=== PATIENT | female | born 1950 | race Caucasian/White ===

== ENCOUNTER 2018-03-29 12:45 | Inpatient (IN) ==
--- NOTE | 2018-03-29 12:49 | PDOC ---
Dyspnea HPI - General Chief Complaint: Respiratory Complaint Stated Complaint: Short of Breath Date Seen by Provider: 03/29/18 Time Seen by Provider: 12:49 Source: POSITIVE: Patient, Other (Daughter) Exam Limitations: POSITIVE: No limitations Treatment Prior to Arrival: REPORTS: None Nurse's Notes Reviewed & Considered: Yes - History of Present Illness Initial Comments: This is a well-developed, well-nourished, 67-year-old female, complaining of shortness of breath. Patient with several months of increasing shortness of breath has gotten acutely worse over the last week. Her daughters have convinced her to come in to be evaluated. She is now complaining of nausea, vomiting, dry heaves, shortness of breath, lower extremity swelling. Patient denies any headache, no sore throat, no chest pain, no cough, no constipation, she has had some episodes of diarrhea over the last couple of days. She denies any hematuria or dysuria, no rashes, she denies fever chills or sweats. Body Location Affected: REPORTS: Lower Extremity (L), Lower Extremity (R), Chest , Abdomen Timing: REPORTS: Gradual, Getting Worse Duration: Other (Approximately 3 months but acutely worse in the last 7 days.) Severity: Severe Initiating Event: DENIES: Upper Respiratory Illness, Out of Medications, Sports , Exercise, Aspiration, Choking, Allergy, Exposure - Smoke, Exposure - Mold, Exposure - Other Allergen Context: DENIES: Sleep, Rest, Emotional Upset, Activity, Exertion, Other Exacerbated By: REPORTS: Exertion Associated Symptoms: REPORTS: Ankle Swelling, Leg Swelling Similar Symptoms Previously: No Recently seen/treated/hospitalized: No Any Prior Injuries Related to Current Complaint?: No - Patient Home Medications Home Medications: Home Medications Albuterol Sulfate [Ventolin Hfa] 1 - 2 puff INH PRN PRN 03/29/18 Amlodipine Besylate 5 mg PO DAILY 03/29/18 Aspirin 1 mg PO DAILY 03/29/18 Aspirin/Calcium Carbonate/Mag [Aspirin Buffered 325 mg Tab] 650 mg PO BEDTIME Benazepril HCl 10 mg PO DAILY 03/29/18 Hydrochlorothiazide 25 mg PO DAILY 03/29/18 Multivit-Min/Iron/Folic/Lutein [Centrum Silver Women Tablet] 1 tab PO DAILY [place]-3 Fatty Acids/Fish Oil [[place] 3 1,000 mg Softgel] 1 cap PO DAILY 03/29/18 Sitagliptin Phos/Metformin HCl [Janumet 50-500 mg Tablet] 1 tab PO BID 03/29/18 traMADol HCl [Ultram] 50 mg PO TID 03/29/18 - Patient Allergies Allergies/Adverse Reactions: Allergies 3 Allergy/AdvReac Type Severity Reaction Status Date / Time acetaminophen [From Vicodin] Allergy HIVES Verified 03/29/18 12:55 codeine Allergy HIVES Verified 03/29/18 12:55 hydrocodone [From Vicodin] Allergy HIVES Verified 03/29/18 12:55 ROS - Limitations ROS Limitations: No Limitations Constitution: REPORTS: Denies Symptoms Cardiovascular: REPORTS: Denies Cardiac Symptoms Respiratory: REPORTS: Shortness Of Breath Neurological: REPORTS: Denies Neuro Symptoms Gastrointestinal: REPORTS: Nausea, Vomitting, Diarrhea Endocrine: REPORTS: Denies Symptoms Musculoskeletal: REPORTS: Denies MS Symptoms Genitourinary: REPORTS: Denies Symptoms Eyes: REPORTS: Denies Symptoms ENT: REPORTS: Denies Symptoms Skin: REPORTS: Denies Skin Symptoms Lympathic: REPORTS: Denies Lympathic Symptoms Immunologic: POSITIVE: Denies Symptoms Psychiatric: POSITIVE: Denies Psych Symptoms Dyspnea Physical Exam - General Appearance General Appearance: REPORTS: Alert, Cooperative, No Acute Distress, No Evidence of Trauma - HEENT HEENT: POSITIVE: Head Inspection Nml, Eyes Inspection Nml, Ears Inspection Nml, Nose Inspection Nml, Oral/Dental Inspect. Nml, Pharynx Inspect. Nml, PERRL, EOMI - Neck Neck: REPORTS: Normal Inspection - Respiratory Respiratory: REPORTS: No Respiratory Distress, Breath Sounds Normal, No Pleuritic Chest Pain, Speaks Full Sentences, No Pain on Inspiration - Cardiovascular Cardiovascular: REPORTS: Regular Rate and Rhythm, Heart Sounds Normal, Strong Pulses, No Murmur, No Gallop, No Friction Rub, No JVD Peripheral Pulses: Radial (L): 4+ - Abdomen Abdomen: Soft: (All Quadrants), Normal Bowel Sounds: (All Quadrants), Denies Tenderness: (All Quadrants), No Splenomegaly: (All Quadrants), No Hepatomegaly: (All Quadrants), No Guarding: (All Quadrants), No Rebound: (All Quadrants), No Palpable Pulse: (All Quadrants), No Palpabale Mass: (All Quadrants), No Distention: (All Quadrants), No Rigidity: (All Quadrants) - Skin Skin: REPORTS: Intact, Normal For Race, Warm, Dry, No Rash - Extremities Extremity: Non-Tender: (All Extremities), Normal ROM: (All Extremities), Normal Inspection: (LUE), (RUE), Pelvis Stable: (All Extremities), Edema / Swelling: ( RLE), (LLE) - Neurological / Psychological Neurological: POSITIVE: Affect Apporpriate, Oriented X3, Motor Normal, Sensation Normal Dyspnea Progress - Results Reviewed by me Xrays/CTs/US Reviewed by me: Yes Discussed with Radiologist: Yes Lab Results Reviewed by Me: Yes CBC and BMP: 03/29/18 13:10 03/29/18 13:10 Lab Results:: Laboratory Results 3 03/29/18 03/29/18 03/29/18 13:10 13:10 13:10 WBC 8.97 RBC 3.41 L Hgb 7.1 L Hct 25.7 L MCV 75.4 L MCH 20.8 L MCHC 27.6 L RDW Std Deviation 43.8 RDW Coeff of Kayla 16.6 H Plt Count 405 H MPV 10.9 Immature Gran % (Auto) 0.1 Neut % (Auto) 77.0 Lymph % (Auto) 12.7 [place] % (Auto) 8.4 Eos % (Auto) 1.2 Baso % (Auto) 0.6 Immature Gran # (Auto) 0.01 Neut # (Auto) 6.91 Lymph # (Auto) 1.14 [place] # (Auto) 0.75 Eos # (Auto) 0.11 Baso # (Auto) 0.05 WBC Morphology Comment Normal morphology Plt Morphology Comment Normal morphology RBC Morph Comment See comments VBG pH VBG pCO2 VBG HCO3 VBG Base Excess Sodium 137 Potassium 4.3 Chloride 99 Carbon Dioxide 25 Anion Gap 13 BUN 21 Creatinine 1.1 Estimated GFR 49 BUN/Creatinine Ratio 19.09 Glucose 147 H Calculated Osmolality 289.0 Lactic Acid 3.4 H Calcium 9.3 Magnesium 1.8 Total Bilirubin 0.3 AST 21 ALT 24 Alkaline Phosphatase 83 CK-MB (CK-2) Troponin I NT-Pro-B Natriuret Pep 756 H Total Protein 7.4 Albumin 4.2 Globulin 3.2 Albumin/Globulin Ratio 1.30 3 06/23/18 06/23/18 13:33 14:31 WBC RBC Hgb Hct MCV MCH MCHC RDW Std Deviation RDW Coeff of Kayla Plt Count MPV Immature Gran % (Auto) Neut % (Auto) Lymph % (Auto) [place] % (Auto) Eos % (Auto) Baso % (Auto) Immature Gran # (Auto) Neut # (Auto) Lymph # (Auto) [place] # (Auto) Eos # (Auto) Baso # (Auto) WBC Morphology Comment Plt Morphology Comment RBC Morph Comment VBG pH 7.40 VBG pCO2 38 L VBG HCO3 24 VBG Base Excess -1 Sodium Potassium Chloride Carbon Dioxide Anion Gap BUN Creatinine Estimated GFR BUN/Creatinine Ratio Glucose Calculated Osmolality Lactic Acid Calcium Magnesium Total Bilirubin AST ALT Alkaline Phosphatase CK-MB (CK-2) 0.97 Troponin I < 0.012 NT-Pro-B Natriuret Pep Total Protein Albumin Globulin Albumin/Globulin Ratio EKG Interpreted/Reviewed By Me:: Yes (sinus rhythm 98 beats a minute with no ST changes) EKG Interpretation:: POSITIVE: Normal Sinus Rhythm - Patient's Progress Pain Medication Addressed: POSITIVE: Yes Re-Examine Time: 16:11 Status: POSITIVE: Improved MDM / ED Course: Patient was evaluated, an IV started, blood drawn and sent to the lab for studies, EKG and CT examinations were obtained. Findings: EKG, per my interpretation, shows a normal sinus rhythm with a rate of 98 beats a minute. CBC shows anemia with hemoglobin of 7.1 hematocrit of 12.7. Troponin and CK-MB are normal. BNP is elevated at 756. CMP is unremarkable. Lactic acid is elevated at 3.1. CT scan of her chest shows no acute cardiopulmonary decompensation. Her heart does exhibit cardiomegaly. CT scan of her abdomen shows no acute intra-abdominal or intrapelvic abnormalities. Assessment: #1 dyspnea. #2 congestive heart failure. #3 anemia. Plan: Transfuse 2 units of packed red blood cells. Admission, Lasix, Benadryl, and Tylenol as needed. Air Movement: POSITIVE: Good Quality Measure Initiative: CP/AMI: POSITIVE: EKG Quality Measure Initiative: CAP: POSITIVE: CXR or CT - Consult Consult (If Yes, Name of Consulting MD & Time Called): Yes (Dr. Young 1420hrs, 1612hrs) Consulting MD will see pt:: POSITIVE: [facility] Admit Counseled: POSITIVE: Patient, Family, RE: Lab Results, RE: Radiology Results, RE : DX, RE: Need for F/U Patient Care Time - Estimated PCT Patient Care Time (In Minutes): 45 Vital Signs - Recent Vital Signs Vital Signs: Vital Signs (Last 8 hours) Temp Pulse Pulse Resp BP BP Pulse Ox 03/29/18 14:10 93 18 101/54 96 03/29/18 13:30 95 18 98/51 96 03/29/18 13:15 107 H 18 98/64 93 03/29/18 13:00 109 H 18 82/44 97 03/29/18 12:50 117 H 18 117/54 92 03/29/18 12:46 98.7 F 113 H 18 91/78 85 - VS Reviewed Vital Signs Reviewed: Yes Discharge Clinical Impression: Congestive heart failure, Anemia, Shortness of breath Discharge Disposition: Admit to Observation Condition: Stable Follow Up With: NONE,NONE [Primary Care Provider] - Date Decision to Admit to Inpatient: 03/29/18 Time Decision to Admit to Inpatient: 16:16
[2018-03-29] MEDS ORDERED: Sodium Chloride 0.9% 1,000 ML PRIMARY IV ONE (13:08)
[2018-03-29] MEDS ORDERED: FUROSEMIDE 10 MG/1 ML - 4 ML IVP ONE (13:08)
[2018-03-29] MEDS ORDERED: ONDANSETRON 4 MG/2 ML VIAL IVP ONE (13:09)
[2018-03-29] MEDS ORDERED: LIDOCAINE HCL 2 % 10 ML JELLY URO-JECT TOPICAL PRN (13:24)
[2018-03-29 13:29] LABS: BASOPHILS # (AUTO) 0.05 10*3/UL; BASOPHILS % (AUTO) 0.6 % (0-1); EOSINOPHILS # (AUTO) 0.11 10*3/UL; EOSINOPHILS % (AUTO) 1.2 % (0-8); Hematocrit [HCT] 25.7 % (37.0-47.0); Hemoglobin [HGB] 7.1 g/dL (12.0-16.0); LYMPHOCYTES # (AUTO) 1.14 10*3/uL; MEAN CORPUSCULAR HEMOGLOBIN 20.8 PG (27-31); MEAN CORPUSCULAR HGB CONC 27.6 g/dL (33-37); MEAN CORPUSCULAR VOLUME 75.4 FL (81-99); MEAN PLATELET VOLUME 10.9 FL (7.4-12.2); MONOCYTES # (AUTO) 0.75 10*3/UL (0.3-0.8); MONOCYTES % (AUTO) 8.4 % (5-15); NEUTROPHILS # (AUTO) 6.91 10*3/UL; RED BLOOD COUNT 3.41 10^6/uL (4.20-5.40)
[2018-03-29 13:36] LABS: BUN/CREATININE RATIO 19.09 (6-20); SERUM ALBUMIN 4.2 g/dL (3.5-4.8)
[2018-03-29 13:46] LABS: PLATELET MORPHOLOGY COMMENT NORMAL MORPHOLOGY (NORM); RBC MORPHOLOGY COMMENT SEE COMMENTS (NORM); WBC MORPHOLOGY COMMENT NORMAL MORPHOLOGY (NORM)
--- NOTE | 2018-03-29 14:00 | EKG ---
[address] [address] Measurements Intervals [place] Rate: 98 P: 62 DC: 156 QRS: 21 QRSD: 84 T: 49 QT: 361 QTc: 417 Interpretive Statements SINUS RHYTHM WITH OCCASIONAL VENTRICULAR PREMATURE COMPLEXES No previous ECG available for comparison Electronically Signed On 03-31-18 17:50:27 MDT by David Motley [email or web address]
[2018-03-29 14:04] LABS: VENOUS PH 7.4 (7.32-7.42)
--- NOTE | 2018-03-29 14:13 | DI ---
EXAM: XR Chest, 2 Views CLINICAL HISTORY: ITS.REASON sob Physician Notes: Tech Comments: TECHNIQUE: Frontal and lateral views of the chest. COMPARISON: No relevant prior studies available. FINDINGS: Lungs: Left basilar atelectasis/pneumonitis. Pleural space: Unremarkable. No pneumothorax. Heart: Large cardiac silhouette. Mediastinum: Unremarkable. Bones/joints: No acute fracture. IMPRESSION: Left basilar atelectasis/pneumonitis.
[2018-03-29] MEDS ORDERED: diphenhydrAMINE 25 MG CAPSULE PO ONE (14:29)
[2018-03-29] MEDS ORDERED: predniSONE Tab 20 MG TAB PO ONE (14:29)
[2018-03-29] MEDS ORDERED: Sodium Chloride 0.9% 500 ML PRIMARY IV ONE ×2 (14:29→17:21)
--- NOTE | 2018-03-29 15:52 | DI ---
EXAM: CT Angiography Chest With Intravenous Contrast CLINICAL HISTORY: ITS.REASON sob Physician Notes: Tech Comments: TECHNIQUE: Axial computed tomographic angiography images of the chest with intravenous contrast using pulmonary embolism protocol. MIP reconstructed images were created and reviewed. COMPARISON: No relevant prior studies available. FINDINGS: Pulmonary arteries: No pulmonary embolus. Aorta: No thoracic aortic aneurysm. Lungs: Mild consolidative atelectasis in the lung bases. Pleural space: No effusion. No pneumothorax. Heart: Cardiomegaly. Bones/joints: Severe compression fracture L1, may be acute on chronic. Old right rib fracture. Soft tissues: Unremarkable. Lymph nodes: No enlarged lymph nodes. IMPRESSION: 1. No pulmonary embolus. 2. Severe compression fracture L1, may be acute on chronic.
--- NOTE | 2018-03-29 15:58 | DI ---
EXAM: CT Abdomen and Pelvis With Intravenous Contrast CLINICAL HISTORY: ITS.REASON anemia, n/v Physician Notes: Tech Comments: TECHNIQUE: Axial computed tomography images of the abdomen and pelvis with intravenous contrast. COMPARISON: No relevant prior studies available. FINDINGS: Lung bases: Mild consolidative atelectasis in the lung bases. Heart: Cardiomegaly. ABDOMEN: Liver: Unremarkable. Gallbladder and bile ducts: No calcified stones. No ductal dilation. Pancreas: Unremarkable. Spleen: Unremarkable. Adrenals: Unremarkable. Kidneys and ureters: Unremarkable. No hydronephrosis. Stomach and bowel: No florentino mural thickening. Nonobstructive bowel gas pattern. PELVIS: Appendix: Appendix not identified. Bladder: Chinchilla catheter. Reproductive: Unremarkable. ABDOMEN and PELVIS: Intraperitoneal space: Unremarkable. Bones/joints: Transitional anatomy, will assume 6 lumbar type vertebra. Compression deformity of the L1, may be acute on chronic. Right hip replacement. Severe and degenerative changes of the left hip. Degenerative changes in the spine. Soft tissues: Unremarkable. Vasculature: Unremarkable. No abdominal aortic aneurysm. Lymph nodes: No enlarged lymph nodes. IMPRESSION: 1. Appendix not identified. No evidence of colitis or bowel obstruction. 2. Compression deformity of L1, may be acute on chronic.
--- NOTE | 2018-03-29 17:00 | PDOC ---
HPI - History of Present Illness History of Present Illness: This very nice 67-year-old female who was brought in by her granddaughter who convinced her to come in the she's been having shortness of breath for the last 2 months with increased pedal edema a few months ago she was told she has the CHF but she ignored it and didn't believe that. She sees a PA in [place]. She also was found to be anemic with a hemoglobin of 7 she has a history of hemochromatosis in the past but hasn't had not had her blood taken for 3 or 4 years. Past Medical History Medical History: Hemochromatosis, congestive heart failure diagnosed 4 months ago patient ignored it Surgical History: Hip surgery, compression fracture seen on CT L1 Past Social History: Smoking 9 months ago smoked for 50 years drink diet Pepsi for 30 years Tobacco Use: Former Smoker In the Past 12 Months, Have Used or Abuse Any of the Following Substance: None Alcohol Use: None Medication / Allergies Home Medications: Home Medications 3 Medication Instructions Recorded Confirmed Type Albuterol Sulfate [Ventolin Hfa] 1 - 2 puff INH PRN PRN 03/29/18 03/29/18 History Amlodipine Besylate 5 mg PO DAILY 03/29/18 03/29/18 History Aspirin 1 mg PO DAILY 03/29/18 03/29/18 History Aspirin/Calcium Carbonate/Mag 650 mg PO BEDTIME 03/29/18 03/29/18 History [Aspirin Buffered 325 mg Tab] Benazepril HCl 10 mg PO DAILY 03/29/18 03/29/18 History Hydrochlorothiazide 25 mg PO DAILY 03/29/18 03/29/18 History Multivit-Min/Iron/Folic/Lutein 1 tab PO DAILY 03/29/18 03/29/18 History [Centrum Silver Women Tablet] [place]-3 Fatty Acids/Fish Oil 1 cap PO DAILY 03/29/18 03/29/18 History [[place] 3 1,000 mg Softgel] Sitagliptin Phos/Metformin HCl 1 tab PO BID 03/29/18 03/29/18 History [Janumet 50-500 mg Tablet] traMADol HCl [Ultram] 50 mg PO TID 03/29/18 03/29/18 History Allergies/Adverse Reactions: Allergies 3 Allergy/AdvReac Type Severity Reaction Status Date / Time acetaminophen [From Vicodin] Allergy HIVES Verified 03/29/18 12:55 codeine Allergy HIVES Verified 03/29/18 12:55 hydrocodone [From Vicodin] Allergy HIVES Verified 03/29/18 12:55 Review of Systems - Review of Systems All Systems: Reviewed & No Additional Complaints Except as Stated - Respiratory Respiratory: REPORTS: Dyspnea At Rest - Cardiovascular Cardiovascular: DENIES: Negative System Review, Chest Pain, Edema, Syncope, Palpitations, Orthopnea, Paroxysmal Nocturnal Dyspnea, Other, See HPI - Gastrointestinal Gastrointestinal / Abdominal: REPORTS: Bloating - Musculoskeletal Musculoskeletal: DENIES: Negative System Review, Back Pain, Neck Pain, Joint Swelling, Calf Pain, Muscle Pain, Cramping, Joint Pain - Hands, Joint Pain - Elbows, Joint Pain - Shoulders, Joint Pain - Hips, Joint Pain - Knees, Joint Pain - Feet, AM Stiffness, Other, See HPI - Neurological Neurologic: DENIES: Negative System Review, Headache, Numbness/Paresthesia, Tremors, Weakness, Seizures, Head Trauma, LOC, Dizziness, Confusion, Memory Loss , Difficulty Walking, Incoordination, Other, See HPI Exam - Vitals Vital Signs: Vital Signs Temperature 98.7 F Temperature Source Temporal Artery Scan Pulse Rate [Pulse Oximeter 108 Right] Pulse Rate 93 Respiratory Rate 18 Blood Pressure [Left Arm] 97/61 Blood Pressure 101/54 Pulse Ox 94 Oxygen Flow Rate 2 lpm Oxygen Delivery Method Nasal Cannula Height 5 ft 7 in Weight 220 lb - General General Appearance: No Acute Distress, Cooperative - Head Head Exam: Normal Inspection, Normocephalic, Atraumatic - Neck Neck Exam: Normal Inspection, Full ROM, No Tenderness, No Lymphadenopathy, No Thyromegaly, JVP is not Raised - Respiratory Respiratory Exam: POSITIVE: Clear to Auscultation - Bilaterally, Breathing Non Labored, Normal To Percussion, Normal to Percussion and Palpation - Cardiovascular Cardiovascular Exam: POSITIVE: RRR, No Murmur, No Clicks, No Gallops, No Rubs, PMI Non-Displaced - GI/Abdominal GI/Abdominal Exam: POSITIVE: Normal Bowel Sounds, Non Tender, Non Distended, Soft, No Masses, No Hepatomegaly, No Splenomegaly, No Organomegaly - Extremities Extremities Exam: POSITIVE: +2 Edema - Neurological Neurological Exam: POSITIVE: Alert, Oriented x 3, Reflexes Normal, CN II-XII Intact, No Facial Droop, Speech Intact / Clear, Moves All Extremities Equally Results - Labs CBC and BMP: 03/29/18 13:10 03/29/18 13:10 Assessment and Plan - Patient Problems (1) Anemia Current Visit: Yes Status: Acute Code(s): D64.9 - Anemia, unspecified (2) Congestive heart failure Current Visit: Yes Status: Acute Code(s): I50.9 - Heart failure, unspecified (3) Shortness of breath Current Visit: Yes Status: Acute Code(s): R06.02 - Shortness of breath - Assessment / Plan Additional Assessment/Plan Details: #1 clinical congestive heart failure I do not have capabilities to do echoes since we do not have a tech she will be doing this workup as an outpatient patient agrees I will diurese her with the Lasix drip she already received 40 IV in the ER appropriately done. She is already on an CYRUS inhibitor and Norvasc this is why she is short of breath as well risk factors smoker for 30 years check troponins every 6 #2 anemia etiology unknown she will need EGD colonoscopy as an outpatient other possibility is she's not producing blood cells and a few EGD colonoscopy are negative will need hematology follow-up also as an outpatient I explained to this to all the daughters granddaughters grandsons and the patient herself they understand #3 she has a remote history of hemochromatosis we'll check a ferritin level #4 diabetes on metformin and Januvia combination check hemoglobin A1c
[2018-03-29] MEDS ORDERED: LIDOCAINE W/ SODIUM BICARB 0.5 ML SYR SUBD PRN (17:21)
[2018-03-29] MEDS: traMADol 50 MG TABLET PO SCH (21:04)
[2018-03-29] MEDS: sitaGLIPtin Tab 100 MG TAB PO SCH (21:05)
[2018-03-29] MEDS: metFORMIN 500 MG TABLET PO SCH (21:05)
[2018-03-29] MEDS: POTASSIUM CHLORIDE 20 MEQ TAB PO SCH (21:05)
[2018-03-30 04:58] LABS: BASOPHILS # (AUTO) 0.01 10*3/UL; BASOPHILS % (AUTO) 0.1 % (0-1); EOSINOPHILS # (AUTO) 0 10*3/UL; EOSINOPHILS % (AUTO) 0 % (0-8); Hematocrit [HCT] 29.5 % (37.0-47.0); Hemoglobin [HGB] 8.5 g/dL (12.0-16.0); MEAN CORPUSCULAR HEMOGLOBIN 21.9 PG (27-31); MEAN CORPUSCULAR HGB CONC 28.8 g/dL (33-37); MEAN PLATELET VOLUME 11.1 FL (7.4-12.2); MONOCYTES # (AUTO) 0.48 10*3/UL (0.3-0.8); MONOCYTES % (AUTO) 4.9 % (5-15); NEUTROPHILS # (AUTO) 8.49 10*3/UL; NEUTROPHILS % (AUTO) 85.8 % (50-80); RED BLOOD COUNT 3.88 10^6/uL (4.20-5.40)
[2018-03-30 05:16] LABS: BUN/CREATININE RATIO 21.81 (6-20); SERUM ALBUMIN 3.6 g/dL (3.5-4.8)
[2018-03-30 05:17] LABS: HEMOGLOBIN A1C 5.98 % (4.2-6.0)
[2018-03-30 05:36] LABS: PLATELET MORPHOLOGY COMMENT NORMAL MORPHOLOGY (NORM); WBC MORPHOLOGY COMMENT NORMAL MORPHOLOGY (NORM)
[2018-03-30 05:37] LABS: RBC MORPHOLOGY COMMENT SEE COMMENTS (NORM)
[2018-03-30] MEDS: metFORMIN 500 MG TABLET PO SCH (08:57)
[2018-03-30] MEDS: POTASSIUM CHLORIDE 20 MEQ TAB PO SCH (08:57)
[2018-03-30] MEDS: traMADol 50 MG TABLET PO SCH ×2 (08:57→15:15)
[2018-03-30] MEDS: sitaGLIPtin Tab 100 MG TAB PO SCH (08:58)
[2018-03-30] MEDS ORDERED: BENAZEPRIL 10 MG TABLET PO SCH (09:00)
[2018-03-30] MEDS ORDERED: AmLODIPine Tab 5 MG TABLET PO SCH (09:00)
[2018-03-30] MEDS ORDERED: FATTY ACIDS PO SCH (09:00)
[2018-03-30] MEDS ORDERED: OMEGA PO SCH (09:00)
[2018-03-30] MEDS ORDERED: ASPIRIN 325 MG TABLET PO SCH (09:00)
[2018-03-30] MEDS ORDERED: Multivitamin Tab 1 TAB PO SCH (09:00)
[2018-03-30] MEDS ORDERED: FISH OIL PO SCH (09:00)
[2018-03-30] MEDS ORDERED: sitaGLIPtin Tab 100 MG TAB PO SCH (09:00)
[2018-03-30 11:04] VITALS: BP 114/53; RESP 19; TEMP 97
[2018-03-30] MEDS ORDERED: FUROSEMIDE 20 MG TABLET PO SCH (13:00)
--- NOTE | 2018-03-30 13:14 | DCSUMMARY ---
Hospitalization Summary Hospital Course: Final Discharge Diagnosis: Current Visit Problems Problem Status Onset Code Congestive heart failure Acute I50.9 Anemia Acute D64.9 Shortness of breath Acute R06.02 Diagnostic Data, Laboratory Data, and Procedures of Signifigance: CBC and BMP 03/30/18 04:26 03/30/18 04:26 History and Physical pertinent to Admission: Course of Hospitalization: Is a very nice 67-year-old female who comes into the ER with increased shortness of breath and lower extremity swelling troponin was negative BNP slightly elevated she was diagnosed with CHF or 5 months ago but she ignored the diagnosis did not seek any further treatment she has been a 30 year longtime smoker actually 50 years stopped 9 months ago. Her sats were 70% in the ER is now on 2 L. We put her on a Lasix drip and diuresed about 4 L or leg swelling is resolved she is feeling back to her normal self and is wanting to go home I told her we gave HER-2 units of packed red blood cells her hemoglobin is up to 8.5 I recommended for her to be above 10 but she does not want any more blood and wants to go home we will put her on iron supplementation also we will schedule follow-up with Dr. kristofer Faustin general surgery for anemia workup for possible colonoscopy and EGD and a cardiac workup with the conductor/engineer tomorrow morning and call her with the appointments. She also says that she will follow-up with a PA in [place] which could also make these appointments. I will call RT to evaluate her if she needs oxygen to be sent home with. She will buy some iron [id number] she states On the date of discharge, the patient was examined: Gen.: No acute distress, alert, nontoxic Heart: Regular rate and rhythm, no murmurs, clicks, gallops, or rubs Lungs: Clear to auscultation bilaterally, breathing is nonlabored Abdomen/GI: Normal tones on auscultation, soft, nontender, nondistended Musculoskeletal/extremities: No clubbing, cyanosis, or edema Vitals reviewed and are listed below Vital Signs (24 hrs) Temp Pulse Pulse Resp BP BP BP 03/30/18 11:04 97 F 99 19 114/53 03/30/18 11:00 03/30/18 06:44 98.2 F 96 20 136/54 03/30/18 06:42 03/30/18 05:09 124/56 03/30/18 04:43 97.3 F 99 20 105/42 03/30/18 03:00 100 03/30/18 00:53 97 F 104 H 20 118/57 03/29/18 23:04 102 H 03/29/18 23:00 03/29/18 20:07 98.4 F 106 H 20 116/63 03/29/18 19:52 98.2 F 105 H 20 102/54 03/29/18 19:49 98.0 F 104 H 20 105/58 03/29/18 19:34 103 H 20 127/59 03/29/18 19:20 98.0 F 100 20 113/60 03/29/18 19:00 103 H 105 H 20 03/29/18 17:56 98.2 F 105 H 20 119/60 03/29/18 17:41 105 H 20 106/47 03/29/18 17:26 98.1 F 105 H 20 108/44 03/29/18 17:11 105 H 20 03/29/18 17:06 98.8 F 100 20 119/50 03/29/18 16:10 108 H 18 97/61 03/29/18 15:30 101 H 18 99/54 03/29/18 14:10 93 18 101/54 03/29/18 13:30 95 18 98/51 03/29/18 13:15 107 H 18 98/64 Pulse Ox 03/30/18 11:04 95 03/30/18 11:00 93 03/30/18 06:44 95 03/30/18 06:42 96 03/30/18 05:09 03/30/18 04:43 97 03/30/18 03:00 97 03/30/18 00:53 96 03/29/18 23:04 03/29/18 23:00 94 03/29/18 20:07 94 03/29/18 19:52 94 03/29/18 19:49 95 03/29/18 19:34 95 03/29/18 19:20 95 03/29/18 19:00 96 03/29/18 17:56 96 03/29/18 17:41 95 03/29/18 17:26 95 03/29/18 17:11 03/29/18 17:06 91 03/29/18 16:10 94 03/29/18 15:30 94 03/29/18 14:10 96 03/29/18 13:30 96 03/29/18 13:15 93 Assessment and Plan: 1. As per discharge assessments above 2. Disposition: Home 3. Condition on discharge, stable and improved. 4. Diet: Healthy heart 5. Activities: resume normal activities 6. Follow-Up: 1. PCP 2. 7. Medications at the Time of Discharge: Home Medications 3 Medication Instructions Recorded Confirmed Type Albuterol Sulfate [Ventolin Hfa] 1 - 2 puff INH PRN PRN 03/29/18 03/29/18 History Amlodipine Besylate 5 mg PO DAILY 03/29/18 03/29/18 History Aspirin 1 mg PO DAILY 03/29/18 03/29/18 History Benazepril HCl 10 mg PO DAILY 03/29/18 03/29/18 History Multivit-Min/Iron/Folic/Lutein 1 tab PO DAILY 03/29/18 03/29/18 History [Centrum Silver Women Tablet] [place]-3 Fatty Acids/Fish Oil 1 cap PO DAILY 03/29/18 03/29/18 History [[place] 3 1,000 mg Softgel] Sitagliptin Phos/Metformin HCl 1 tab PO BID 03/29/18 03/29/18 History [Janumet 50-500 mg Tablet] traMADol HCl [Ultram] 50 mg PO TID 03/29/18 03/29/18 History Furosemide [Lasix] 20 mg PO BID@0700,1300 #60 tab 03/30/18 Rx Potassium Chloride [Klor-Con] 20 meq PO BID #60 tab 03/30/18 Rx 8. Time, care, counseling and coordination of care for this discharge is greater than 30 minutes. Exam - Vitals Vital Signs: Vital Signs Temperature 97 F Temperature Source Temporal Artery Scan Pulse Rate [Pulse Oximeter 99 Right] Pulse Rate 100 Respiratory Rate 19 Blood Pressure [Right Arm] 114/53 Blood Pressure [Left Arm] 105/42 Blood Pressure 116/63 Pulse Ox 95 Oxygen Flow Rate 2 Oxygen Delivery Method Nasal Cannula Height 5 ft 7 in Weight 214 lb 9.6 oz Patient Problems - Patient Problem List (1) Anemia Current Visit: Yes Status: Acute Code(s): D64.9 - Anemia, unspecified Category: Medical (2) Congestive heart failure Current Visit: Yes Status: Acute Code(s): I50.9 - Heart failure, unspecified Category: Medical (3) Shortness of breath Current Visit: Yes Status: Acute Code(s): R06.02 - Shortness of breath Category: Medical
[2018-03-30 13:30] VITALS: O2SAT 94
== END 2018-03-30 16:35 | disposition home or self-care (01) | DRG 293 ==
LOC: ER 12:45 → MED/SURG 16:40
PROVIDERS: ADMIT Internal Medicine; ATTEND Internal Medicine

== ENCOUNTER 2018-04-02 20:50 | Inpatient (IN) ==
--- NOTE | 2018-04-02 21:20 | PDOC ---
Dyspnea HPI - General Chief Complaint: Respiratory Complaint Stated Complaint: BLE EDEMA, DYSPNEA Date Seen by Provider: 04/02/18 Time Seen by Provider: 21:16 - History of Present Illness Initial Comments: This is a very nice 67-year-old woman who presents to the emergency department with complaints of shortness of breath and dyspnea. She apparently was seen and admitted this last week with a hemoglobin down in the sevens increasing shortness of breath a brain natruretic peptide above 700 with diagnosis of congestive heart failure substantial anemia and was given a couple units of blood diuresed on a furosemide drip for couple of days and then sent home feeling better. Unfortunately over the last 2-3 days she's had increasing weakness and increasing shortness of breath decreasing oxygenation despite being on 2 L at home and was unable to eat today due to shortness of breath and a feeling of nausea and she did feel that she could manage tonight. - Patient Home Medications Home Medications: Home Medications Albuterol Sulfate [Ventolin Hfa] 1 - 2 puff INH PRN PRN 03/29/18 Amlodipine Besylate 5 mg PO DAILY 03/29/18 Aspirin 1 mg PO DAILY 03/29/18 Benazepril HCl 10 mg PO DAILY 03/29/18 Multivit-Min/Iron/Folic/Lutein [Centrum Silver Women Tablet] 1 tab PO DAILY [place]-3 Fatty Acids/Fish Oil [[place] 3 1,000 mg Softgel] 1 cap PO DAILY 03/29/18 Sitagliptin Phos/Metformin HCl [Janumet 50-500 mg Tablet] 1 tab PO BID 03/29/18 traMADol HCl [Ultram] 50 mg PO TID 03/29/18 Furosemide [Lasix] 20 mg PO BID@0700,1300 #60 tab 03/30/18 Iron Aspgly,Ps/C/B12/FA/Ca/Suc [Ferrex 150 Forte Plus Capsule] 1 ea PO DAILY # 30 cap 03/30/18 Potassium Chloride [Klor-Con] 20 meq PO BID #60 tab 03/30/18 - Patient Allergies Allergies/Adverse Reactions: Allergies 3 Allergy/AdvReac Type Severity Reaction Status Date / Time codeine Allergy HIVES Verified 04/02/18 21:15 Past Medical History - heen HEENT History: Cataracts Additional HEENT History: R eye Cardiovascular History: Hypertension, CHF Additional Cardiovasular History: pt states she was told once she has chf but wouldn't use home oxygen Respiratory History: COPD, Shortness of Breath Additional Respiratory History: pt states she was told once she has copd but wouldn't use home oxygen Gastrointestinal History: Denies History Genitourinary History: Incontinence Endocrine History: Type 2 Diabetes (oral) Musculoskeletal History: Limited ROM, Joint Pain, Osteoarthritis Prosthesis or Implant: Yes (rt hip) Neurological History: Denies History Blood Disorders: Anemia Psychiatric History: Denies History Additional Psychiatric History: "not diagnosed but my depression is getting worse" Cancer History: Denies History History of MDRO: No In the Past 12 Months, Have Used or Abuse Any Substance: None Previous Surgical History: Yes Type / Date of Surgery: rt hip replaced, lt knee Anesthesia Reactions: No Malignant Hyperthermia: No Significant Family History: No pertinent family hx Past Medical History Reviewed: Reviewed - No Changes ROS - Limitations ROS Limitations: No Limitations Constitution: REPORTS: Denies Symptoms Neurological: REPORTS: Denies Neuro Symptoms Gastrointestinal: REPORTS: Denies GI Symptoms Endocrine: REPORTS: Denies Symptoms Dyspnea Physical Exam - General Appearance General Appearance: REPORTS: Alert, Cooperative - HEENT HEENT: POSITIVE: Head Inspection Nml, Eyes Inspection Nml - Neck Neck: REPORTS: Normal Inspection - Respiratory Respiratory: REPORTS: Other (Basilar crackles) - Cardiovascular Cardiovascular: REPORTS: Regular Rate and Rhythm - Abdomen Abdomen: Soft: (All Quadrants), Normal Bowel Sounds: (All Quadrants), Denies Tenderness: (All Quadrants) - Skin Skin: REPORTS: Intact, Warm, Dry - Extremities Additional Extremities Details: 2+ bilateral pitting edema - Neurological / Psychological Neurological: POSITIVE: Affect Apporpriate, Oriented X3 Dyspnea Progress - Results Reviewed by me Xrays/CTs/US Reviewed by me: Yes Radiology Findings: Benign chest x-ray Lab Results Reviewed by Me: Yes CBC and BMP: 04/02/18 22:00 04/02/18 22:00 Lab Results:: Laboratory Results 3 04/02/18 04/02/18 04/02/18 22:00 22:00 22:00 WBC 22.63 H RBC 4.15 L Hgb 9.3 L Hct 31.9 L MCV 76.9 L MCH 22.4 L MCHC 29.2 L RDW Std Deviation 49.8 RDW Coeff of Kayla 18.4 H Plt Count 396 H MPV 10.5 Immature Gran % (Auto) 0.3 Neut % (Auto) 91.2 H Lymph % (Auto) 3.4 L [place] % (Auto) 4.9 L Eos % (Auto) 0.1 Baso % (Auto) 0.1 Immature Gran # (Auto) 0.06 Neut # (Auto) 20.63 Lymph # (Auto) 0.77 [place] # (Auto) 1.12 H Eos # (Auto) 0.03 Baso # (Auto) 0.02 WBC Morphology Comment Normal morphology Plt Morphology Comment Normal morphology RBC Morph Comment Normal morphology ABG pH ABG pCO2 ABG pO2 ABG HCO3 ABG Total CO2 ABG O2 Saturation ABG Base Excess Jerel Test FiO2 Sodium 134 L Potassium 4.6 Chloride 94 L Carbon Dioxide 28 Anion Gap 12 BUN 22 Creatinine 1.0 Estimated GFR 55 BUN/Creatinine Ratio 22.00 H Glucose 179 H Calculated Osmolality 284.0 Lactic Acid 1.0 Calcium 9.1 Total Bilirubin 0.7 AST 17 ALT 27 Alkaline Phosphatase 96 NT-Pro-B Natriuret Pep 492 H Total Protein 7.5 Albumin 4.2 Globulin 3.3 Albumin/Globulin Ratio 1.20 L Ur Collection Type Urine Color Urine Clarity Urine pH Ur Specific [place] Urine Protein Urine Glucose (UA) Urine Ketones Urine Occult Blood Urine Nitrate Urine Bilirubin Urine Urobilinogen Ur Leukocyte Esterase Urine RBC Urine WBC Ur Squamous Epith Cells Ur Renal Epithelial Cell Urine Crystals Urine Bacteria Urine Casts Urine Mucus Urine Trichomonas Urine Yeast Ur Culture Indicated? 3 04/03/18 04/03/18 00:39 01:18 WBC RBC Hgb Hct MCV MCH MCHC RDW Std Deviation RDW Coeff of Kayla Plt Count MPV Immature Gran % (Auto) Neut % (Auto) Lymph % (Auto) [place] % (Auto) Eos % (Auto) Baso % (Auto) Immature Gran # (Auto) Neut # (Auto) Lymph # (Auto) [place] # (Auto) Eos # (Auto) Baso # (Auto) WBC Morphology Comment Plt Morphology Comment RBC Morph Comment ABG pH 7.45 ABG pCO2 40 H ABG pO2 63 L ABG HCO3 27 H ABG Total CO2 28 H ABG O2 Saturation 93 ABG Base Excess 3 H Jerel Test Pos FiO2 32 Sodium Potassium Chloride Carbon Dioxide Anion Gap BUN Creatinine Estimated GFR BUN/Creatinine Ratio Glucose Calculated Osmolality Lactic Acid Calcium Total Bilirubin AST ALT Alkaline Phosphatase NT-Pro-B Natriuret Pep Total Protein Albumin Globulin Albumin/Globulin Ratio Ur Collection Type Cath specimen Urine Color Yellow Urine Clarity Clear Urine pH 8.5 Ur Specific [place] 1.015 Urine Protein 30 A Urine Glucose (UA) Negative Urine Ketones Trace A Urine Occult Blood Trace-intact H Urine Nitrate Positive A Urine Bilirubin Negative Urine Urobilinogen 0.2 Ur Leukocyte Esterase Trace Urine RBC 3-5 Urine WBC 6-11 Ur Squamous Epith Cells None Ur Renal Epithelial Cell None Urine Crystals None Urine Bacteria Many H Urine Casts None Urine Mucus None Urine Trichomonas None Urine Yeast None Ur Culture Indicated? Culture set - Patient's Progress MDM / ED Course: This patient was evaluated and found to have urinary tract infection. She has a white count of 22 she's been febrile and is feeling poorly. Her chest does not reveal any source of infection abdomen is soft nontender but urine does appear to be infected. Likely from catheter that she had him placed during her previous hospitalization. She is unable to void for us so another catheter is been placed and she is been given some antibiotics after blood cultures and urine cultures were taken. I did go ahead and give her a 500 mL bolus at the request of hospitalist and start her on some maintenance fluids and hospitalist has agreed to admit her to the hospital for further management. Patient Care Time - Estimated PCT Patient Care Time (In Minutes): 35 Vital Signs - Recent Vital Signs Vital Signs: Vital Signs (Last 8 hours) Temp Pulse Resp BP Pulse Ox 04/03/18 01:00 98.7 F 04/03/18 00:17 102.1 F H 04/02/18 23:36 101.1 F H 04/02/18 21:45 100.5 F H 04/02/18 20:51 99.5 F 120 H 18 150/57 94 - VS Reviewed Vital Signs Reviewed: Yes Discharge Clinical Impression: Shortness of breath Congestive heart failure Qualifiers: Heart failure type: unspecified Heart failure chronicity: acute Qualified Code( s): I50.9 - Heart failure, unspecified Discharge Disposition: Admit to Inpatient Condition: Stable Follow Up With: NONE,NONE [Primary Care Provider] - Date Decision to Admit to Inpatient: 04/03/18 Time Decision to Admit to Inpatient: 01:41
--- NOTE | 2018-04-02 21:37 | EKG ---
[address] [address] Measurements Intervals [place] Rate: 122 P: 83 OR: 171 QRS: 33 QRSD: 82 T: 50 QT: 300 QTc: 372 Interpretive Statements SINUS TACHYCARDIA ABNORMAL RHYTHM ECG Compared to ECG 03/29/2018 14:00:33 Sinus rhythm no longer present Ventricular premature complex(es) no longer present Electronically Signed On 04-03-18 07:39:00 MDT by Jamel Serrano MD [email or web address]
--- NOTE | 2018-04-02 21:48 | DI ---
AP /LATERAL CHEST, 04/02/2018 9:08 PM : Clinical History: Dyspnea. Previous Exam: 03/29/2018. The patient is morbidly obese. This detracts from the overall quality and significantly limits the di agnostic quality of the exam with respect to small or fine detail structures. There is no acute soft tissue or bony abnormality. Heart size is normal. Lungs are clear. The pulmonary artery is prominent in this patient probably has pulmonary arterial hypertension. Mediastinal structures are normal. Ther e are no pulmonary nodules. Readin. Normal chest x-ray. There may be pulmonary arterial hypertension. 2. There has been no significant interval change.
[2018-04-02 22:11] LABS: BASOPHILS # (AUTO) 0.02 10*3/UL; BASOPHILS % (AUTO) 0.1 % (0-1); EOSINOPHILS # (AUTO) 0.03 10*3/UL; EOSINOPHILS % (AUTO) 0.1 % (0-8); Hematocrit [HCT] 31.9 % (37.0-47.0); Hemoglobin [HGB] 9.3 g/dL (12.0-16.0); LYMPHOCYTES # (AUTO) 0.77 10*3/uL; MEAN CORPUSCULAR HEMOGLOBIN 22.4 PG (27-31); MEAN CORPUSCULAR HGB CONC 29.2 g/dL (33-37); MEAN CORPUSCULAR VOLUME 76.9 FL (81-99); MEAN PLATELET VOLUME 10.5 FL (7.4-12.2); MONOCYTES # (AUTO) 1.12 10*3/UL (0.3-0.8); MONOCYTES % (AUTO) 4.9 % (5-15); NEUTROPHILS # (AUTO) 20.63 10*3/UL; NEUTROPHILS % (AUTO) 91.2 % (50-80); RED BLOOD COUNT 4.15 10^6/uL (4.20-5.40)
[2018-04-02 22:12] LABS: PLATELET MORPHOLOGY COMMENT NORMAL MORPHOLOGY (NORM); RBC MORPHOLOGY COMMENT NORMAL MORPHOLOGY (NORM); WBC MORPHOLOGY COMMENT NORMAL MORPHOLOGY (NORM)
[2018-04-02 22:20] LABS: SERUM ALBUMIN 4.2 g/dL (3.5-4.8)
[2018-04-02] MEDS ORDERED: ACETAMINOPHEN 500 MG TABLET PO ONE (23:09)
[2018-04-03] MEDS ORDERED: LIDOCAINE HCL 2 % 10 ML JELLY URO-JECT TOPICAL PRN (00:17)
[2018-04-03] MEDS ORDERED: cefTRIAXone Inj 1 GM in Sodium Chloride 0.9% 100 ML IV ONE (00:19)
[2018-04-03] MEDS ORDERED: KETOROLAC 15 MG/1 ML VIAL IVP ONE (00:19)
[2018-04-03 00:49] LABS: COLLECTION SITE RR
[2018-04-03 00:50] LABS: ABG BASE EXCESS 3 MMOL/L (-2-2); ABG OXYGEN SATURATION 93 % (90-100); ABG PCO2 40 MMHG (34-38); ABG PH 7.45 (7.35-7.45); ABG PO2 63 MMHG (65-75); ALLEN TEST Pos
[2018-04-03 01:19] LABS: BILIRUBIN,URINE NEGATIVE (NEG); CLARITY,URINE CLEAR (CLEAR); COLOR,URINE YELLOW (Y); GLUCOSE, URINE (UA) NEGATIVE (NEG); OCCULT BLOOD,URINE Trace-intact (NEG); PH,URINE 8.5 (5.0-8.5); PROTEIN,URINE 30 mg/dl (NEG); UROBILINOGEN,URINE 0.2 EU/dL (0.2)
[2018-04-03 01:28] LABS: BACTERIA,URINE MANY; URINE SAMPLE TYPE CATH SPECIMEN
[2018-04-03] MEDS ORDERED: Sodium Chloride 0.9% 1,000 ML PRIMARY IV ONE (01:39)
[2018-04-03] MEDS ORDERED: ACETAMINOPHEN 325 MG TABLET PO PRN (02:38)
[2018-04-03] MEDS ORDERED: ONDANSETRON 4 MG/2 ML VIAL IVP PRN (02:38)
[2018-04-03] MEDS ORDERED: LIDOCAINE W/ SODIUM BICARB 0.5 ML SYR SUBD PRN (02:38)
[2018-04-03] MEDS ORDERED: CALCIUM CARBONATE 500 MG (TUMS) CHEWABLE TABLET PO PRN (02:38)
[2018-04-03] MEDS ORDERED: Sodium Chloride 0.9% 1,000 ML PRIMARY IV SCH (02:38)
[2018-04-03] MEDS ORDERED: DOCUSATE 100 MG CAPSULE PO PRN (02:38)
--- NOTE | 2018-04-03 03:08 | PDOC ---
HPI - History of Present Illness Date of Service: 04/03/18 Chief Complaint: Lethargy and dry heaving with decreased appetite last 24 hours History of Present Illness: This is a 67 years old female with medical history significant for history of hypertension, diabetes, arthritis admission over the weekend for shortness of breath diagnosed with clinical CHF, discovered also to have iron deficiency anemia was given 2 units of blood, also she was hypoxic and was put on oxygen 2 L a minute on discharge, who was brought to the hospital because of lethargy, decreased appetite and dry heaves. The patient she said was brought to the hospital over the weekend because of the shortness of breath and leg swelling was given Lasix and get 2 units of blood went home on Saturday she was feeling better followed up with Dr. Bowden there was a plan for her to have a scope end of the week however yesterday she became lethargic having dry heaves, the family thought the swelling also came back and because of that they brought her to the ER. Evaluation in the ER revealed fever, elevated white count and abnormal UA. Blood Culture and urine culture was taken and she was giving a dose of Rocephin and is admitted. She is more awake now according to the family compared to when she came in. There was some confusion according to them but she seemed to be awake and with it. She denied chest pain, denies palpitation. She denied dysuria or frequency. She did say that she had a catheter when she was here. She gave a history of alternating diarrhea and constipation for quite a few years. She is very limited in what she is able to do because of her arthritis. Past Medical History Medical History: 1. Hypertension. 2. Diabetes. 3. Recent diagnosis of iron deficiency anemia had 2 units of blood over the weekend. 4. Hypoxia recently diagnosed as put on 2 L of oxygen. 5. Clinical diagnosis of CHF unknown type. 6. Arthritis Surgical History: 1. Right hip replacement Hip surgery Past Social History: Smoked for 50 years about 2 packs a day quit about a year ago, does not drink or drugs. Lives with her . Her mobility is very limited because of her arthritis use a walker. Tobacco Use: Former Smoker Do you dip or chew tobacco: No In the Past 12 Months, Have Used or Abuse Any of the Following Substance: None Medication / Allergies Home Medications: Home Medications 3 Medication Instructions Recorded Confirmed Type Albuterol Sulfate [Ventolin Hfa] 1 - 2 puff INH PRN PRN 03/29/18 04/02/18 History Amlodipine Besylate 5 mg PO DAILY 03/29/18 04/02/18 History Aspirin 1 mg PO DAILY 03/29/18 04/02/18 History Benazepril HCl 10 mg PO DAILY 03/29/18 04/02/18 History Multivit-Min/Iron/Folic/Lutein 1 tab PO DAILY 03/29/18 04/02/18 History [Centrum Silver Women Tablet] [place]-3 Fatty Acids/Fish Oil 1 cap PO DAILY 03/29/18 04/02/18 History [[place] 3 1,000 mg Softgel] Sitagliptin Phos/Metformin HCl 1 tab PO BID 03/29/18 04/02/18 History [Janumet 50-500 mg Tablet] traMADol HCl [Ultram] 50 mg PO TID 03/29/18 04/02/18 History Furosemide [Lasix] 20 mg PO BID@0700,1300 #60 tab 03/30/18 04/02/18 Rx Iron Aspgly,Ps/C/B12/FA/Ca/Suc 1 ea PO DAILY #30 cap 03/30/18 04/02/18 Rx [Ferrex 150 Forte Plus Capsule] Potassium Chloride [Klor-Con] 20 meq PO BID #60 tab 03/30/18 04/02/18 Rx Allergies/Adverse Reactions: Allergies 3 Allergy/AdvReac Type Severity Reaction Status Date / Time codeine Allergy HIVES Verified 04/03/18 06:18 Review of Systems - Review of Systems All Systems: Reviewed & No Additional Complaints Except as Stated Exam - Vitals Vital Signs: Vital Signs Temperature 98.7 F Temperature Source Temporal Artery Scan Pulse Rate [Pulse Oximeter] 118 Respiratory Rate 20 Blood Pressure [Left Radial 150/57 Artery] Pulse Ox 94 Oxygen Flow Rate 3 Oxygen Delivery Method Nasal Cannula Height 5 ft 8 in Weight 216 lb - General General Appearance: No Acute Distress, Morbidly Obese - Head Head Exam: Normal Inspection - Eye Eye Exam: POSITIVE: Normal Appearance - ENT ENT Exam: POSITIVE: Normal Exam - Neck Neck Exam: Normal Inspection - Respiratory Respiratory Exam: POSITIVE: Clear to Auscultation - Bilaterally - Cardiovascular Cardiovascular Exam: POSITIVE: RRR - GI/Abdominal GI/Abdominal Exam: POSITIVE: Normal Bowel Sounds, Non Tender, Non Distended, Soft, No Organomegaly - Rectal Rectal Exam: POSITIVE: Deferred - External Exam: POSITIVE: Deferred Exam: POSITIVE: Deferred - Extremities Additional Extremities Exam Details: Trace edema noted - Back Back Exam: POSITIVE: Normal Inspection - Neurological Neurological Exam: POSITIVE: Alert, Oriented x 3, CN II-XII Intact, No Facial Droop, Speech Intact / Clear, Moves All Extremities Equally - Psychiatric Psychiatric Exam: POSITIVE: Normal Affect Results - Labs CBC and BMP: 04/02/18 22:00 04/02/18 22:00 - EKG Data -: EKG Interpreted by Me (EKG showed sinus tachycardia) - Imaging Status: Report Reviewed by Me (Ches X ray Normal chest x-ray. There may be pulmonary arterial hypertension.) Assessment and Plan - Patient Problems (1) UTI (urinary tract infection) Current Visit: Yes Status: Acute Comment: When she was here at the hospital she had a catheter which make it a complicated urinary tract infection. Will put her on meropenem until we have culture result. I did tell her we have to give her some fluid now will be cautious with the amount of fluid because of the clinical diagnosis of CHF. She does not look though overloaded now. Code(s): N39.0 - Urinary tract infection, site not specified (2) Diabetes Current Visit: No Status: Acute Comment: We'll hold the metformin now we'll continue with the Januvia. We'll check her blood sugar Code(s): E11.9 - Type 2 diabetes mellitus without complications (3) Hypertension Current Visit: Yes Status: Acute Comment: She is normally on amlodipine and Lotensin will check her blood pressure in the morning and then will decide about restarting her blood pressure medications Code(s): I10 - Essential (primary) hypertension (4) Anemia Current Visit: No Status: Acute Comment: We'll monitor her hemoglobin. Code(s): D64.9 - Anemia, unspecified (5) History of CHF (congestive heart failure) Current Visit: Yes Status: Acute Comment: There was a recent diagnosis of clinical CHF. Currently she does not appear overloaded I think this is likely more right-sided heart failure. We'll give her fluid cautiously. Will hold off on her Lasix for now. Code(s): Z86.79 - Personal history of other diseases of the circulatory system
[2018-04-03] MEDS: Lactated Ringers 1,000 ML PRIMARY IV SCH ×3 (03:26→18:37)
[2018-04-03] MEDS: Meropenem Inj 1 GM in Sodium Chloride 0.9% 100 ML IV SCH ×3 (03:26→18:37)
[2018-04-03] MEDS ORDERED: traMADol 50 MG TABLET PO PRN (03:35)
[2018-04-03] MEDS ORDERED: LUTEIN PO SCH (09:00)
[2018-04-03] MEDS ORDERED: MULTIVIT MIN PO SCH (09:00)
[2018-04-03] MEDS ORDERED: IRON PO SCH (09:00)
[2018-04-03] MEDS ORDERED: FOLIC PO SCH (09:00)
[2018-04-03 09:14] LABS: Hematocrit [HCT] 29.3 % (37.0-47.0); Hemoglobin [HGB] 8.4 g/dL (12.0-16.0); MEAN CORPUSCULAR HEMOGLOBIN 22.1 PG (27-31); MEAN CORPUSCULAR HGB CONC 28.7 g/dL (33-37); MEAN CORPUSCULAR VOLUME 77.1 FL (81-99); MEAN PLATELET VOLUME 10.5 FL (7.4-12.2)
[2018-04-03] MEDS: sitaGLIPtin Tab 100 MG TAB PO SCH (09:14)
[2018-04-03] MEDS: Multivitamin Tab 1 TAB PO SCH (09:15)
[2018-04-03 09:43] LABS: PLATELET MORPHOLOGY COMMENT NORMAL MORPHOLOGY (NORM); WBC MORPHOLOGY COMMENT SEE COMMENTS (NORM)
[2018-04-03 09:45] LABS: RBC MORPHOLOGY COMMENT SEE COMMENTS (NORM)
[2018-04-03 09:46] LABS: BAND NEUTROPHILS % 8 % (0-10); BASOPHILS % (MANUAL) 1 % (0-1); EOSINOPHILS % (MANUAL) 0 % (0-8); METAMYELOCYTES % 1 %; MONOCYTES % (MANUAL) 6 % (0-12); NEUTROPHILS % (MANUAL) 79 % (50-80)
[2018-04-03] MEDS ORDERED: Vancomycin-PHA to Dose IV PRN (10:11)
[2018-04-03] MEDS: LEVALBUTEROL HCL 0.63 MG/3 ML NEB PRN (19:19)
[2018-04-04] MEDS: Meropenem Inj 1 GM in Sodium Chloride 0.9% 100 ML IV SCH (03:39)
[2018-04-04] MEDS: Lactated Ringers 1,000 ML PRIMARY IV SCH (03:40)
[2018-04-04 07:14] LABS: BASOPHILS # (AUTO) 0.03 10*3/UL; BASOPHILS % (AUTO) 0.1 % (0-1); BLOOD UREA NITROGEN 13 mg/dL (7-22); BUN/CREATININE RATIO 16.25 (6-20); EOSINOPHILS # (AUTO) 0.11 10*3/UL; EOSINOPHILS % (AUTO) 0.5 % (0-8); Hematocrit [HCT] 31.9 % (37.0-47.0); Hemoglobin [HGB] 8.8 g/dL (12.0-16.0); LYMPHOCYTES # (AUTO) 1.12 10*3/uL; MEAN CORPUSCULAR HEMOGLOBIN 21.7 PG (27-31); MEAN CORPUSCULAR HGB CONC 27.6 g/dL (33-37); MEAN CORPUSCULAR VOLUME 78.8 FL (81-99); MONOCYTES # (AUTO) 0.89 10*3/UL (0.3-0.8); MONOCYTES % (AUTO) 3.9 % (5-15); NEUTROPHILS # (AUTO) 20.69 10*3/UL; NEUTROPHILS % (AUTO) 90.1 % (50-80); RED BLOOD COUNT 4.05 10^6/uL (4.20-5.40)
[2018-04-04 07:30] LABS: PLATELET MORPHOLOGY COMMENT NORMAL MORPHOLOGY (NORM)
[2018-04-04 07:31] LABS: RBC MORPHOLOGY COMMENT SEE COMMENTS (NORM); WBC MORPHOLOGY COMMENT SEE COMMENTS (NORM)
[2018-04-04] MEDS: LEVALBUTEROL HCL 0.63 MG/3 ML NEB PRN (08:23)
[2018-04-04] MEDS ORDERED: TIOTROPIUM BROMIDE 18 MCG CAPSULE INH SCH (08:30)
[2018-04-04] MEDS: Multivitamin Tab 1 TAB PO SCH (08:39)
[2018-04-04] MEDS: sitaGLIPtin Tab 100 MG TAB PO SCH (08:39)
--- NOTE | 2018-04-04 08:54 | PDOC(PROG) ---
Date and Time of Service: 04/04/2018 9 AM Interval History: Subjective Patient complaining from feeling shortness of breath today. Denying other symptoms. Still feeling tired though. Objective : Data - Labs CBC and BMP: 04/04/18 06:45 04/04/18 06:45 Objective : Exam - General Additional General Exam Details: Her breathing seemed to be labored. - Head Head Exam: Normal Inspection - Eye Eye Exam: Normal Appearance - ENT ENT Exam: Normal Exam - Neck Neck Exam: Normal Inspection - Respiratory Additional Respiratory Exam Details: Very poor air entry. Minimal wheeze. I don't hear significant crackles. - Cardiovascular Cardiovascular Exam: Tachycardia - GI/Abdominal GI/Abdominal Exam: Normal Bowel Sounds, Non Tender, Non Distended, Soft, No Organomegaly - Rectal Rectal Exam: Deferred - External Exam: Deferred Exam: Deferred - Extremities Extremities Exam: Normal Inspection - Back Back Exam: Normal Inspection - Neurological Neurological Exam: Alert, Oriented x 3, CN II-XII Intact, No Facial Droop, Speech Intact / Clear, Moves All Extremities Equally - Psychiatric Psychiatric Exam: Normal Affect Assessment and Plan - Patient Problems (1) UTI (urinary tract infection) Current Visit: Yes Status: Acute Comment: The growth showing gram-negative bacilli. She is on meropenem. Yesterday her white count went up to 39,000 and I added vancomycin since we have a growth of gram-negative bacilli and nothing in the blood today will DC the vancomycin. His white count is coming down. Code(s): N39.0 - Urinary tract infection, site not specified (2) Diabetes Current Visit: No Status: Acute Comment: We'll watch her blood sugar and continue Januvia Code(s): E11.9 - Type 2 diabetes mellitus without complications (3) Hypertension Current Visit: Yes Status: Acute Comment: Continue holding her blood pressure medications Code(s): I10 - Essential (primary) hypertension (4) Anemia Current Visit: No Status: Acute Comment: Hemoglobin is stable. Code(s): D64.9 - Anemia, unspecified (5) History of CHF (congestive heart failure) Current Visit: Yes Status: Acute Comment: I think will watch her blood pressure during the day and then will decide about whether to restart her Lasix. Code(s): Z86.79 - Personal history of other diseases of the circulatory system (6) COPD (chronic obstructive pulmonary disease) Current Visit: No Status: Acute Comment: I think her shortness of breath is probably secondary to her underlying COPD. will puts her on breathing treatment including Xopenex scheduled. Will add Spiriva. We'll watch her during the day and decide whether we need to put her on BiPAP or restart the Lasix. Code(s): J44.9 - Chronic obstructive pulmonary disease, unspecified
[2018-04-04] MEDS ORDERED: ENOXAPARIN SODIUM 40 MG/0.4 ML SYRINGE SUBCUT SCH (09:00)
[2018-04-04] MEDS ORDERED: traZODone Tab 50 MG TAB PO PRN (10:26)
[2018-04-04] MEDS ORDERED: cefTRIAXone Inj 2 GM in Sodium Chloride 0.9% 100 ML IV SCH (12:00)
[2018-04-04] MEDS: LEVALBUTEROL HCL 1.25 MG/3 ML NEB SCH ×3 (12:53→18:45)
[2018-04-04] MEDS ORDERED: diphenhydrAMINE 25 MG CAPSULE PO PRN (16:08)
[2018-04-04] MEDS ORDERED: BUDESONIDE 0.5 MG/2 ML NEB SCH (19:00)
[2018-04-04] MEDS ORDERED: FLUTICASONE/SALMETEROL 250/50 UD INHALER INH SCH (19:00)
--- NOTE | 2018-04-04 21:00 | DCSUMMARY ---
Hospitalization Summary Admit Date: 04/03/2018 Discharge Date: 04/04/18 Hospital Course: Transfer diagnoses 1. Complicated urinary tract infection with Klebsiella 2. Recent diagnosis of congestive heart failure unknown type 3. Diabetes 4. COPD on oxygen 5. Recent diagnosis of iron deficiency anemia status post post 2 units blood transfusion last weekend 6. History of arthritis Hospital course This is a 67 years old female hypertension, diabetes, arthritis and admission last week for shortness of breath and anemia was diagnosed with clinical congestive heart failure for which she was put on IV Lasix drip initially and discharged on Lasix, the anemia was iron deficiency anemia and she was given 2 units of blood she was also hypoxic and was put on oxygen 2 L a minute on discharge. On the night of the she was brought to the hospital because of lethargy, decreased appetite and dry heaving. She was febrile a UA was abnormal white count was 22,000 she was diagnosed with urinary tract infection and admitted. 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 She was tachycardic so we held her blood pressure medication including the Lasix. We gave her fluid, because of significantly elevated white count and complicated urinary tract infection initially I put her on meropenem and vancomycin once growth showed gram-negative bacilli and blood culture was negative we discontinued the vancomycin and then once we have the identification of the culture to be Klebsiella she was put on Rocephin. Her white count did go up the next day to 39,000 and today was 22,000. I think she has an element also of COPD we put her on inhalers treatment including Spiriva, Xopenex and budesonide. I think she is making improvement I stopped the fluid today my plan was to think about restarting the Lasix tomorrow. 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 The family was concerned about the fact that she did not have the echo and we don't have cardiology services available so they requested transfer. I did speak with the ER physician Dr. Gomes and he accepted the patient and the patient will be transferred at one point tonight. Because of the iron deficiency anemia patient was the supposed to have EGD and colonoscopy this week but because of this admission for urinary tract infection this was canceled. Laboratory Results 04/03/18 04/03/18 04/04/18 Range/Units 01:18 09:05 06:45 WBC 22.95 H (4.8-10.8) 10^3/uL RBC 4.05 L (4.20-5.40) 10^6/uL Hgb 8.8 L (12.0-16.0) g/dL Hct 31.9 L (37.0-47.0) % MCV 78.8 L (81-99) FL MCH 21.7 L (27-31) PG MCHC 27.6 L (33-37) g/dL RDW Std Deviation 51.7 H (39-50) fL RDW Coeff of Kayla 18.5 H (11.5-14.5) % Plt Count 365 H (140-350) 10*3/uL MPV 11.0 (7.4-12.2) FL Immature Gran % (Auto) 0.5 (0-5) % Neut % (Auto) 90.1 H (50-80) % Lymph % (Auto) 4.9 L (10-50) % [place] % (Auto) 3.9 L (5-15) % Eos % (Auto) 0.5 (0-8) % Baso % (Auto) 0.1 (0-1) % Immature Gran # (Auto) 0.11 10*3/UL Neut # (Auto) 20.69 10*3/UL Lymph # (Auto) 1.12 10*3/uL [place] # (Auto) 0.89 H (0.3-0.8) 10*3/UL Eos # (Auto) 0.11 10*3/UL Baso # (Auto) 0.03 10*3/UL WBC Morphology Comment See comments (NORM) Plt Morphology Comment Normal morphology (NORM) RBC Morph Comment See comments (NORM) Smear Path Review See comments (SEE COMMENT) Sodium (135-145) meq/L Potassium (3.8-5.2) meq/L Chloride (98-112) meq/L Carbon Dioxide (23-33) meq/L Anion Gap (5-20) BUN (7-22) mg/dL Creatinine (0.50-1.20) mg/dL Estimated GFR (>60 ml/min/1.73m(2)) BUN/Creatinine Ratio (6-20) Glucose (78-110) mg/dL Calculated Osmolality (267-292) mOsm/kg Calcium (8.7-10.7) mg/dL Ur Collection Type Cath specimen Urine Color Yellow (Y) Urine Clarity Clear (CLEAR) Urine pH 8.5 (5.0-8.5) Ur Specific [place] 1.015 (1.005-1.030) Urine Protein 30 A (NEG) mg/dl Urine Glucose (UA) Negative (NEG) mg/dL Urine Ketones Trace A (NEG) Urine Occult Blood Trace-intact H (NEG) Urine Nitrate Positive A (NEG) Urine Bilirubin Negative (NEG) Urine Urobilinogen 0.2 (0.2) EU/dL Ur Leukocyte Esterase Trace (NEG) Urine RBC 3-5 (NONE) /hpf Urine WBC 6-11 (NONE) Ur Squamous Epith Cells None (NONE) Ur Renal Epithelial Cell None (NONE) Urine Crystals None Urine Bacteria Many H (NONE) Urine Casts None (NONE) Urine Mucus None (NONE) Urine Trichomonas None (NONE) Urine Yeast None (NONE) Ur Culture Indicated? Culture set 04/04/18 Range/Units 06:45 WBC (4.8-10.8) 10^3/uL RBC (4.20-5.40) 10^6/uL Hgb (12.0-16.0) g/dL Hct (37.0-47.0) % MCV (81-99) FL MCH (27-31) PG MCHC (33-37) g/dL RDW Std Deviation (39-50) fL RDW Coeff of Kayla (11.5-14.5) % Plt Count (140-350) 10*3/uL MPV (7.4-12.2) FL Immature Gran % (Auto) (0-5) % Neut % (Auto) (50-80) % Lymph % (Auto) (10-50) % [place] % (Auto) (5-15) % Eos % (Auto) (0-8) % Baso % (Auto) (0-1) % Immature Gran # (Auto) 10*3/UL Neut # (Auto) 10*3/UL Lymph # (Auto) 10*3/uL [place] # (Auto) (0.3-0.8) 10*3/UL Eos # (Auto) 10*3/UL Baso # (Auto) 10*3/UL WBC Morphology Comment (NORM) Plt Morphology Comment (NORM) RBC Morph Comment (NORM) Smear Path Review (SEE COMMENT) Sodium 138 (135-145) meq/L Potassium 4.2 (3.8-5.2) meq/L Chloride 103 (98-112) meq/L Carbon Dioxide 27 (23-33) meq/L Anion Gap 8 (5-20) BUN 13 (7-22) mg/dL Creatinine 0.8 (0.50-1.20) mg/dL Estimated GFR > 60 (>60 ml/min/1.73m(2)) BUN/Creatinine Ratio 16.25 (6-20) Glucose 181 H (78-110) mg/dL Calculated Osmolality 290.0 (267-292) mOsm/kg Calcium 8.7 (8.7-10.7) mg/dL Ur Collection Type Urine Color (Y) Urine Clarity (CLEAR) Urine pH (5.0-8.5) Ur Specific [place] (1.005-1.030) Urine Protein (NEG) mg/dl Urine Glucose (UA) (NEG) mg/dL Urine Ketones (NEG) Urine Occult Blood (NEG) Urine Nitrate (NEG) Urine Bilirubin (NEG) Urine Urobilinogen (0.2) EU/dL Ur Leukocyte Esterase (NEG) Urine RBC (NONE) /hpf Urine WBC (NONE) Ur Squamous Epith Cells (NONE) Ur Renal Epithelial Cell (NONE) Urine Crystals Urine Bacteria (NONE) Urine Casts (NONE) Urine Mucus (NONE) Urine Trichomonas (NONE) Urine Yeast (NONE) Ur Culture Indicated? Discharge instruction Diet regular Activity as tolerated Medication Active Medications Acetaminophen (Tylenol) 650 mg PO Q6H PRN PRN Reason: Pain or Fever Budesonide (Pulmicort Neb Soln) 0.5 mg NEB RTBID FLAVIO Last Admin: 04/04/18 18:54 Dose: 0.5 mg Calcium Carbonate (Tums) 1 - 2 tab PO Q6H PRN PRN Reason: Heartburn Diphenhydramine HCl (Benadryl) 25 mg PO Q6H PRN PRN Reason: Pruritus / Itching Last Admin: 04/04/18 18:38 Dose: 25 mg Docusate Sodium (Colace) 100 mg PO BID PRN PRN Reason: Constipation Enoxaparin Sodium (Lovenox Inj) 40 mg SUBCUT DAILY [facility] Last Admin: 04/04/18 10:36 Dose: 40 mg Ceftriaxone Sodium 2 gm/ (Sodium Chloride) 100 mls @ 200 mls/hr IV Q24H [facility] Last Admin: 04/04/18 12:31 Dose: 200 mls/hr Levalbuterol HCl (Xopenex Neb Soln) 1.25 mg NEB RTQ6H [facility] Last Admin: 04/04/18 18:45 Dose: 1.25 mg Lidocaine HCl (Lidocaine Buffered Inj) 0.5 ml SUBD ONCE PRN PRN Reason: IV Starts Multivitamins Therapeutic (Thera Tab) 1 tab PO DAILY [facility] Last Admin: 04/04/18 08:39 Dose: 1 tab Ondansetron HCl (Zofran Inj) 4 mg IVP Q4H PRN PRN Reason: NAUSEA / VOMITING Sitagliptin Phosphate (Januvia Tab) 100 mg PO DAILY [facility] Last Admin: 04/04/18 08:39 Dose: 100 mg Tiotropium [employer] (Spiriva Inhalation Cap) 18 mcg INH RTDAILY [facility] Last Admin: 04/04/18 08:30 Dose: 18 mcg Tramadol HCl (Ultram) 50 mg PO TID PRN PRN Reason: Pain Last Admin: 04/04/18 08:39 Dose: 50 mg Trazodone HCl (Desyrel Tab) 25 mg PO BEDTIME PRN PRN Reason: Sleep Follow-up per [facility] post discharge Condition at transfer was stable for transfer Exam - Vitals Vital Signs: Vital Signs Temperature 98.9 F Temperature Source Temporal Artery Scan Pulse Rate [Pulse Oximeter] 108 Pulse Rate 108 Respiratory Rate 20 Blood Pressure [Left Radial 130/62 Artery] Pulse Ox 95 Oxygen Flow Rate 3 Oxygen Delivery Method Room Air Height 5 ft 8 in Weight 216 lb Patient Problems - Patient Problem List (1) UTI (urinary tract infection) Current Visit: Yes Status: Acute Code(s): N39.0 - Urinary tract infection, site not specified Category: Medical (2) Diabetes Current Visit: No Status: Acute Code(s): E11.9 - Type 2 diabetes mellitus without complications Category: Medical (3) Hypertension Current Visit: Yes Status: Acute Code(s): I10 - Essential (primary) hypertension Category: Medical (4) Anemia Current Visit: No Status: Acute Code(s): D64.9 - Anemia, unspecified Category: Medical (5) History of CHF (congestive heart failure) Current Visit: Yes Status: Acute Code(s): Z86.79 - Personal history of other diseases of the circulatory system Category: Medical (6) COPD (chronic obstructive pulmonary disease) Current Visit: No Status: Acute Code(s): J44.9 - Chronic obstructive pulmonary disease, unspecified Category: Medical
[2018-04-04 21:57] VITALS: BP 142/65; RESP 18; TEMP 97.7; O2SAT 98
== END 2018-04-04 21:51 | disposition short-term general hospital (02) | DRG 690 ==
LOC: ER 20:50 → MED/SURG 04-03 02:12
PROVIDERS: ADMIT Internal Medicine; ATTEND Internal Medicine